=== PATIENT | male | born 1955 | race African-American/Black ===

== ENCOUNTER 2019-05-12 12:47 | Emergency (ER) | payer MEDICAID, MEDICARE ==
[~2019-05-12] VITALS: Ht 160 cm; Wt 85.0 kg
[~2019-05-12 12:47] MED LIST: AMLO-302 PO; LISI-167 PO
[2019-05-12 13:08] VITALS: BP 90/60
--- NOTE | 2019-05-12 13:17 | NUR ---
PT C/O COUGH SINCE WEDNESDAY. CURRENT SMOKER. PEOPLE AT WORK ARE COUGHING, BUT NOBODY AT HOME IS SICK. DOES NOT GET FLU SHOTS.
== END 2019-05-12 14:06 | disposition home or self-care (01) ==
LOC: ED 14:00
DX: B34.9 Viral infection, unspecified (principal); I10 Essential (primary) hypertension
CPT/HCPCS: 71046; 99283